=== PATIENT | female | born 1930 | race Caucasian/White ===

== ENCOUNTER 2017-10-08 15:29 | Emergency (ER) | payer OTHER ==
[~2017-10-08] VITALS: Ht 152.4 cm; Wt 69.0 kg
[~2017-10-08 15:29] MED LIST: ASPIRIN EC325 M1 PO; ASPIRIN325; AUGMENTIN 875-1 EACH PO; CALCIUM 600 +1 EAC5 PO; CIPROFLOXACIN500 M3 PO; CRANBERRY400 MG PO; FISHOIL PO; FLAX SEED OIL PO; FUROSEMIDE 40 M40 M1; FUROSEMIDE 40 M40 MG PO; GLUCOSAMINE CH1 EAC7 PO; IBUPROFEN 200200 M1 PO; K-DUR 20 MEQ T20 MEQ PO; KLOR-CON 1010 MEQ; LISINOPRIL10 MG; LISINOPRIL10 MG PO; NORCO 5-325 TA1 EACH PO; RELAFEN500 MG PO; SIMVASTATIN40 MG; TOPROL XL50 MG; TOPROL XL50 MG PO; VICODIN PO; VITAMIN B-12100 MC1; VITAMIN D1000 UNI1 PO; VITCB500GO PO; ZOCOR40 MG PO
== END 2017-10-08 17:39 | disposition home or self-care (01) ==
LOC: ER 15:29
DX: S09.90XA Unspecified injury of head, initial encounter (principal); I10 Essential (primary) hypertension; M19.90 Unspecified osteoarthritis, unspecified site; I25.2 Old myocardial infarction; Z90.49 Acquired absence of other specified parts of digestive tract; Z88.4 Allergy status to anesthetic agent; W19.XXXA Unspecified fall, initial encounter; Y93.89 Activity, other specified; Y92.89 Other specified places as the place of occurrence of the external cause; Y99.8 Other external cause status